=== PATIENT | female | born 1965 | race Caucasian/White ===

== ENCOUNTER → 2017-04-03 | Emergency (ER) | payer MEDICARE ==
[2012-11-26 10:58] VITALS: BMI 20.7
[~2017-04-03] MED LIST: ADDERALL 30 MG30 MG PO; BUDEPRION SR150 MG PO; PROZAC20 MG PO; SYNTHROID100 MCG PO; TOPAMAX100 MG PO; TRAZODONE HCL150 MG PO; VALIUM10 MG PO; VISTARIL50 MG PO
== END ==
LOC: D.ER 05:52
DX: E51.2 Wernicke's encephalopathy (principal)

== ENCOUNTER 2017-04-06 17:59 | Emergency (ER) | payer MEDICARE ==
[2012-11-26 10:58] VITALS: BMI 20.7
[2017-04-08 14:24] LABS: HEPATITIS C ANTIBODY 0.2 (0.0-0.9)
== END 2017-04-06 18:20 | disposition left against medical advice (07) ==
LOC: D.ER 17:59
PROVIDERS: Family Medicine
DX: S01.01XA Laceration without foreign body of scalp, initial encounter (principal); W01.0XXA Fall on same level from slipping, tripping and stumbling without subsequent striking against object, initial encounter; Y93.89 Activity, other specified; Y92.149 Unspecified place in prison as the place of occurrence of the external cause; S06.0X0A Concussion without loss of consciousness, initial encounter

== ENCOUNTER 2017-04-07 06:07 | Emergency (ER) | payer MEDICARE ==
[2012-11-26 10:58] VITALS: BMI 20.7
== END 2017-04-07 10:27 | disposition home or self-care (01) ==
LOC: D.ER 06:07
PROVIDERS: Family Medicine
DX: S01.01XA Laceration without foreign body of scalp, initial encounter (principal); W19.XXXA Unspecified fall, initial encounter; Y93.89 Activity, other specified; Y92.149 Unspecified place in prison as the place of occurrence of the external cause; S06.0X0A Concussion without loss of consciousness, initial encounter

== ENCOUNTER 2017-04-08 05:40 | Emergency (ER) | payer MEDICARE ==
[2017-04-08 06:37] LABS: UDS - AMPHET NEGATIVE QUAL (NEGATIVE); UDS - BARB NEGATIVE QUAL (NEGATIVE); UDS - BENZO NEGATIVE QUAL (NEGATIVE); UDS - COCAINE NEGATIVE QUAL (NEGATIVE); UDS - OPIATE POSITIVE QUAL (NEGATIVE); UDS - PCP NEGATIVE QUAL (NEGATIVE); UDS - THC NEGATIVE QUAL (NEGATIVE)
[2017-04-08 06:39] LABS: BASOPHILS 0.6 % (0-2); HEMOGLOBIN 11.5 g/dL (12-16); IMMATURE GRANULOCYTES 0.1 % (0-5); LYMPHOCYTES 26.6 % (15-50); MCH 29.2 pg (26.0-34.0); MCHC 31.9 g/dL (31.0-37.0); MCV 91.4 fL (80.0-100.0); MEAN PLATELET VOLUME 9.9 fL (7.4-10.4); MONOCYTES 11.8 % (2-11); NEUTROPHILS 59.9 % (40-80); PLATELET COUNT 304 10x3/uL (130-400); RBC 3.94 10x6/uL (4.00-5.40); RDW 15.5 % (11.5-14.5); WBC 8.1 10x3/uL (4.8-10.8)
[2017-04-08 06:59] LABS: ALBUMIN 3.4 g/dL (3.4-5.0); ALKALINE PHOSPHATASE 94 U/L (46-116); ALT (SGPT) 30 U/L (10-68); CALC OSMOLALITY 280 mosm/kg (275-300); CALCIUM 8.5 mg/dL (8.5-10.1); CARBON DIOXIDE 32.6 mmol/L (21.0-32.0); CHLORIDE - SERUM 98 mmol/L (98-107); CREATININE - SERUM 0.7 mg/dL (0.6-1.3); GLUCOSE 108 mg/dL (74-106); POTASSIUM - SERUM 3.1 mmol/L (3.5-5.1); PROTEIN - SERUM 7.4 g/dL (6.4-8.2); SODIUM 139 mmol/L (136-145); UREA NITROGEN 19 mg/dL (7-18); eGFR NON AFRICAN AMERICAN > 90 mL/min (90-120)
[2017-04-08 07:23] LABS: APPEARANCE SLT CLOUDY (CLEAR); BILIRUBIN NEGATIVE (NEGATIVE); COLOR YELLOW (YELLOW); GLUCOSE NEGATIVE (NEGATIVE); KETONE NEGATIVE (NEGATIVE); NITRITE POSITIVE (NEGATIVE); PROTEIN TRACE mg/dL (NEGATIVE)
[2017-04-08 07:24] LABS: BACTERIA MANY /hpf (NONE SEEN); MUCUS <1+ /lpf (NONE SEEN); RED CELLS - URINE OCC /hpf (0-5)
== END 2017-04-09 06:05 | disposition short-term general hospital (02) ==
LOC: D.ER 05:40
PROVIDERS: Family Medicine
DX: R45.851 Suicidal ideations (principal); F33.9 Major depressive disorder, recurrent, unspecified; N39.0 Urinary tract infection, site not specified; E87.6 Hypokalemia

== ENCOUNTER 2017-04-23 20:04 | Emergency (ER) | payer MEDICARE ==
[2012-11-26 10:58] VITALS: BMI 20.7
== END 2017-04-23 23:09 | disposition home or self-care (01) ==
LOC: D.ER 20:04
DX: S00.01XA Abrasion of scalp, initial encounter (principal); Y04.2XXA Assault by strike against or bumped into by another person, initial encounter; Y93.89 Activity, other specified; Y92.89 Other specified places as the place of occurrence of the external cause; S00.03XA Contusion of scalp, initial encounter; F17.200 Nicotine dependence, unspecified, uncomplicated

== ENCOUNTER 2017-04-24 08:10 | Emergency (ER) | payer MEDICARE ==
[2012-11-26 10:58] VITALS: BMI 20.7
== END 2017-04-24 09:55 | disposition home or self-care (01) ==
LOC: D.ER 08:10
DX: Z59.0 Homelessness (principal)

== ENCOUNTER 2018-09-17 23:12 | Inpatient (IN) | payer OTHER, MEDICAID ==
[~2018-09-17] VITALS: Ht 160 cm; Wt 82.6 kg
--- NOTE | 2018-09-17 23:18 | NUR ---
POISON CONTROL CALLED AT, WILL MONITOR SYMPTOMS AND LAB WORK PER THEIR ADVICE.
[2018-09-17 23:37] LABS: BASOPHILS 0.6 % (0-2); EOSINOPHILS 3.8 % (0-7); HEMATOCRIT 32.7 % (36.0-48.0); HEMOGLOBIN 10.3 g/dL (12-16); IMMATURE GRANULOCYTES 0.2 % (0-5); LYMPHOCYTES 32.1 % (15-50); MCH 25.1 pg (26.0-34.0); MCHC 31.5 g/dL (31.0-37.0); MCV 79.6 fL (80.0-100.0); MEAN PLATELET VOLUME 9.1 fL (7.4-10.4); MONOCYTES 8.4 % (2-11); NEUTROPHILS 54.9 % (40-80); PLATELET COUNT 283 10x3/uL (130-400); RBC 4.11 10x6/uL (4.00-5.40); RDW 18.9 % (11.5-14.5); WBC 6.5 10x3/uL (4.8-10.8)
[2018-09-17 23:55] LABS: ACETAMINOPHEN 9.4 ug/mL (10.0-30.0); ALBUMIN 2.9 g/dL (3.4-5.0); ALKALINE PHOSPHATASE 68 U/L (46-116); ALT (SGPT) 12 U/L (10-68); BILIRUBIN - TOTAL 0.17 mg/dL (0.2-1.3); CALC OSMOLALITY 266 mosm/kg (275-300); CALCIUM 8.1 mg/dL (8.5-10.1); CARBON DIOXIDE 27.8 mmol/L (21.0-32.0); CHLORIDE - SERUM 99 mmol/L (98-107); CREATININE - SERUM 0.7 mg/dL (0.6-1.3); GLUCOSE 97 mg/dL (74-106); POTASSIUM - SERUM 3.2 mmol/L (3.5-5.1); PROTEIN - SERUM 6.8 g/dL (6.4-8.2); SODIUM 135 mmol/L (136-145); UREA NITROGEN 5 mg/dL (7-18); eGFR NON AFRICAN AMERICAN > 90 mL/min (90-120)
[2018-09-18] VITALS (25 sets, daily range): BP systolic 93–148; BP diastolic 42–94; Ht 160 cm; Wt 82.6 kg
[2018-09-18 00:14] LABS: APPEARANCE CLEAR (CLEAR); BILIRUBIN NEGATIVE (NEGATIVE); COLOR YELLOW (YELLOW); GLUCOSE NEGATIVE (NEGATIVE); KETONE NEGATIVE (NEGATIVE); NITRITE NEGATIVE (NEGATIVE); PROTEIN NEGATIVE (NEGATIVE); SPECIFIC GRAVITY 1.015 (1.005-1.020); UROBILINOGEN NORMAL (NORMAL)
[2018-09-18 00:15] LABS: HCG URINE NEGATIVE (NEGATIVE)
[2018-09-18 00:24] LABS: UDS - AMPHET NEGATIVE QUAL (NEGATIVE); UDS - BARB NEGATIVE QUAL (NEGATIVE); UDS - BENZO NEGATIVE QUAL (NEGATIVE); UDS - COCAINE NEGATIVE QUAL (NEGATIVE); UDS - OPIATE NEGATIVE QUAL (NEGATIVE); UDS - PCP NEGATIVE QUAL (NEGATIVE); UDS - THC NEGATIVE QUAL (NEGATIVE)
--- NOTE | 2018-09-18 02:44 | NUR ---
REPORT GIVEN TO VALENCIA HERNÁNDEZ IN ICU. PT TRANSFERRED AND BELONGINGS GIVEN TO Arizona Kitchens.
--- NOTE | 2018-09-18 02:47 | NUR ---
PT BROUGHT ROOM 2311 BY WHEELCHAIR ACCOMPANIED BY ER NURSE, PT ASSISTED OVER TO BED, PAPER SCRUBS ON, SITTER AT DOORWAY, 2 BAGS OF CLOTHING REMOVED FROM ROOM, PT AWAKE, ALERT, AND ORIENTED X 4, PT ADMITS "JUST BEING DONE", STATES " WHEN I WAKE UP AND SEE THE SUNSHINE IN THE MORNINGS I JUST CRY", STATES " I HAVE BEEN OUT OF MY MEDICATION FOR WEEKS AND I AM HOMELESS", LEFT HAND PIV WITH NS @ 125CCHR, CM-SR @ 74, BP STABLE, HISTORY OBTAINED, PT REQUESTING SLEEPING PILL AND SOMETHING FOR ANXIETY", EXPLAINED TO PATIENT THAT DUE TO THE REASON FOR BEING HERE NO SLEEPING PILL OR ANXIETY PILL AT THIS TIME", PT VERBALIZES UNDERSTANDING, SR UP X 2, CALL LIGHT IN REACH, CURTAIN OPEN, ALL EXTRA EQUIPMENT REMOVED FROM ROOM, SITTER IN DOORWAY.
[2018-09-18] MEDS ORDERED: PROZAC40 MG PO (02:52)
[2018-09-18] MEDS ORDERED: XANAX0.25 MG (03:00)
--- NOTE | 2018-09-18 03:15 | NUR ---
SALTINE CRACKERS AND LEMON [place] SODA PROVIDED.
--- NOTE | 2018-09-18 03:30 | NUR ---
PT ASSISTED UP TO BSC TO VOID, VOIDED 400CC CLEAR YELLOW URINE, BACK TO BED WITHOUT DIFFICULTY, WARM BLANKET PROVIDED.
--- NOTE | 2018-09-18 04:00 | NUR ---
PT RESTIING QUIETLY IN BED WATCHING TV, VENESSA, ROSEANNA FROM POISON CONTROL CALLED AND UPDATE PROVIDED.
--- NOTE | 2018-09-18 05:36 | NUR ---
PT ASSISTED UP TO BSC TO VOID, VOIDED 500CC, BACK TO BED WITHOUT DIFFICULTY, LEMON [place] SODA PROVIDED, PT DENIES FURTHER NEEDS.
--- NOTE | 2018-09-18 07:55 | NUR ---
M1 ARMOR CREWMAN PRESENT FOR ABD CT. SITTER ESCORTED PATIENT WITH TECH VIA W/C.
--- NOTE | 2018-09-18 08:04 | NUR ---
FAXED AND NOTIFIED BETTY SANTANA, PHSYCH, OF CONSULT FOR MAGDALENO.
--- NOTE | 2018-09-18 10:33 | NUR ---
PT ASSISTED TO BSC - URINATED - CHANGED BED LINENS - ASSISTED PT BACK TO BED - PT C/O HEADACHE PT AGREED TO TYENOL PRN. CPOC
[2018-09-18 10:53] LABS: MAGNESIUM - SERUM 1.8 mg/dL (1.8-2.4)
[2018-09-18 10:58] LABS: % SATURATION 4 % (15-55); IRON 13 ug/dl (35-150); TOTAL IRON BIND CAPACITY 324 ug/dl (260-445); UNSAT IRON BIND CAPACITY 311 ug/dl (150-375)
[2018-09-18 12:50] LABS: HEMATOCRIT 30.8 % (36.0-48.0); HEMOGLOBIN 9.3 g/dL (12-16)
--- NOTE | 2018-09-18 16:00 | NUR ---
PATIETN DESATED DOWN TO 84% ON RA - PATIENT RESTING WITH EYES CLOSED - AWAKEN PATIENT - POX UP TO 94% - PLACED PATIENT ON 2 L/NC FOR SLEEPING - CPOC
--- NOTE | 2018-09-18 16:30 | NUR ---
MEDICATIONS GIVEN - PATIENT ASKED FOR NAUSEA MEDICATION - OFFERED IV ZOFRAM - PATIENT AGREED - CPOC
--- NOTE | 2018-09-18 16:31 | NUR ---
PATIENT ASKED FOR MEDICATION TO TREAT FEELING LIKE SHE HAS TO GO TO URINATE "ALL THE TIME" - INFORMED PT THIS RN WOULD LET KNOW - CPOC
--- NOTE | 2018-09-18 17:53 | NUR ---
MEDICATIONS GIVEN - PT C/O AIR CONDITINOING NOT WORKING WELL. NOTIFIED LINER REROLL TENDER
--- NOTE | 2018-09-18 19:25 | NUR ---
REPORT REC'D AND CARE ASSUMED, REC'D PT RESTING IN BED ON O2 @ 2LITERS VIA NC, SITTER AT BS, PT AWAKE, ALERT, AND ORIENTED X 4, RIGHT FOREARM PIV WITH NS @ 125CC/HR AND PROTONIX @ 10CC/HR, PT COMPLAINS OF NOT FEELING WELL, STATES " MY STOMACH HURTS AND IS CRAMPING", BSC EMPTIED OF 400 STOOL/URINE, PPP, SOCKS TO BILAT FEET, PT REQUESTING LOTION AND SOMETHING TO DRINK BOTH PROVIDED AT THIS TIME, PT DENIES FURTHER NEEDS, SR UP X 2, CALL LIGHT IN REACH.
[2018-09-18 20:43] LABS: HEMATOCRIT 29.8 % (36.0-48.0)
--- NOTE | 2018-09-18 20:45 | NUR ---
PT ASSISTED UP TO BSC REMAINED IN ROOM WITH PATIENT, PT VOIDED CLEAR YELLOW URINE WITH SMALL AMOUNT LOOSE BROWN STOOL NOTED, PT ASSISTED BACK TO BED, PT COMPLAINS OF STOMACH CRAMPING, OFFERED PT SOME HEAT TO APPLY TO ABDOMEN, STATES " IF I GET WARM I WILL VOMIT", BP STABLE, FREQUENCY OF BP CUFF ADJUSTED FOR COMFORT, DENIES FURTHER NEEDS, SR UP X 2, BED IN LOW POSITION, CALL LIGHT IN REACH.
--- NOTE | 2018-09-18 21:02 | NUR ---
PT CONT WITH 1:[address] DOLAN AWARE OF SITUATION. PT RESTING QUIETLY IN BED WATCHING TV. ADMITS TO CURRENTLY HAVING SUICIDAL THOUGHTS WITH INTENT ON ACTING ON THEM.
--- NOTE | 2018-09-18 22:30 | NUR ---
NEW BAG OF PROTONIX AND NS HUNG AT THIS TIME, PT RESTING QUIETLY WATCHING TV, SITTER AT BS, WILL CONT TO MONITOR FOR CHANGES.
[2018-09-19] VITALS (24 sets, daily range): BP systolic 121–166; BP diastolic 52–103
--- NOTE | 2018-09-19 00:30 | NUR ---
PT AWAKE REQUESTING NAUSEA MEDICATION AND SOMETHING FOR A HEADACHE, RATING HEADACHE PAIN "7" ON 0-10 PAIN SCALE, TYLENOL 650MG PO AND ZOFRAN 4MG GIVEN IV PUSH, SITTER REMAINS AT BS.
--- NOTE | 2018-09-19 03:05 | NUR ---
REASSESSMENT COMPLETED, PT TEARFUL, STATES SHE IS ANXIOUS AND WANTS HER ANXIETY MEDICATION, EXPLAINED TO PATIENT ANXIETY MEDICATION ORDERED 3 TIMES PER DAY AND WOULD NOT BE DUE UNTIL 0900, IBETH PROVIDED FOR SNACK ON REQUEST PT DENIES FURTHER NEEDS.
[2018-09-19 04:27] LABS: BASOPHILS 0.6 % (0-2); EOSINOPHILS 2.7 % (0-7); HEMATOCRIT 32.5 % (36.0-48.0); HEMOGLOBIN 9.7 g/dL (12-16); IMMATURE GRANULOCYTES 0.2 % (0-5); LYMPHOCYTES 24.2 % (15-50); MCH 24.5 pg (26.0-34.0); MCHC 29.8 g/dL (31.0-37.0); MEAN PLATELET VOLUME 9.3 fL (7.4-10.4); MONOCYTES 8.9 % (2-11); NEUTROPHILS 63.4 % (40-80); RBC 3.96 10x6/uL (4.00-5.40); RDW 18.7 % (11.5-14.5); WBC 6.4 10x3/uL (4.8-10.8)
[2018-09-19 04:31] LABS: MCV 82.1 fL (80.0-100.0); PLATELET COUNT 201 10x3/uL (130-400)
[2018-09-19 04:47] LABS: ALBUMIN 2.6 g/dL (3.4-5.0); ALKALINE PHOSPHATASE 63 U/L (46-116); ALT (SGPT) 11 U/L (10-68); BILIRUBIN - TOTAL 0.15 mg/dL (0.2-1.3); CALC OSMOLALITY 277 mosm/kg (275-300); CALCIUM 7.7 mg/dL (8.5-10.1); CARBON DIOXIDE 28.8 mmol/L (21.0-32.0); CHLORIDE - SERUM 106 mmol/L (98-107); CREATININE - SERUM 0.6 mg/dL (0.6-1.3); GLUCOSE 114 mg/dL (74-106); POTASSIUM - SERUM 3.5 mmol/L (3.5-5.1); PROTEIN - SERUM 6.2 g/dL (6.4-8.2); SODIUM 139 mmol/L (136-145); eGFR NON AFRICAN AMERICAN > 90 mL/min (90-120)
[2018-09-19 04:48] LABS: UREA NITROGEN 11 mg/dL (7-18)
--- NOTE | 2018-09-19 04:55 | NUR ---
PT COMPLAINS OF SEVERE HEADACHE AND EXTREME NAUSEA, 4MG ZOFRAN GIVEN SLOW IVP, AND TYLENOL 650MG PO GIVEN FOR HEADACHE, PT DENIES FURTHER NEEDS.
--- NOTE | 2018-09-19 06:00 | NUR ---
PT RESTING IN BED EYES CLOSED, RESP EVEN AND UNLABORED, BP STABLE, WILL REPORT TO ONCOMING SHIFT
--- NOTE | 2018-09-19 07:15 | NUR ---
REPORT RECEIVED. PT ON SUICIDE PRECAUTIONS. SITTER AT BEDSIDE. IV IN RIGHT FOREARM WITH NS @ 125ML/HR AND A PROTONIX DRIP INFUSING. PT ASSISTED TO BSC. WILL ATTEMPT TO GET A STOOL SAMPLE FOR LAB. PT IS ALERT WITH A FLAT AFFECT. PT IN PAPER SCRUBS. VSS. NO OTHER NEEDS AT THIS TIME.
--- NOTE | 2018-09-19 09:15 | NUR ---
IV OUT OF RIGHT FOREARM. ATTEMPTED TO STICK PT TWICE. BLEW VEIN IN LEFT ARM. ASKED ANOTHER NURSE TO TRY.
--- NOTE | 2018-09-19 10:00 | NUR ---
NEW 20 GAUGE IV TO LEFT UPPER ARM. NS AND PROTONIX INFUSING. SITTER AT BEDSIDE.
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
--- NOTE | 2018-09-19 12:37 | NUR ---
PT COMPLAINED OF HEADACHE AND SOMME NAUSEA. STATED THAT THE PROTONIX DRIP HAS HELPED SOME. GAVE TYLENOL FOR HEADACHE AND ZOFRAN FOR NAUSEA. WILL MONITOR.
--- NOTE | 2018-09-19 13:00 | NUR ---
PT STATES "THAT SHE NO LONGER WANTS TO HURT HERSELF, THAT SHE WANTS TO LIVE." SHE IS WORRIED ABOUT HAVING A PLACE TO LIVE AFTER SHE DOES INPATIENT PSYCH. SPOKE WITH DR MONREAL. CONSULT FOR CASE MANAGEMENT PLACED.
[2018-09-19 13:02] LABS: HEMATOCRIT 30.8 % (36.0-48.0); HEMOGLOBIN 9.1 g/dL (12-16)
--- NOTE | 2018-09-19 13:52 | NUR ---
AFTER POTASSIUM REPLACEMENT AND LAB DRAW, POTASSIUM IS NOW 3.7. WILL CHECK AGAIN WITH [facility] TOMORROW 09/20/18.
--- NOTE | 2018-09-19 14:21 | MORECARE ---
CASE MANAGEMENT DISCHARGE SUMMARY PATIENT: CLIFFORD VIRK UNIT: [id number] ADM DATE: 09/18/18 AGE: 53 : 63 SEX: F ROOM/BED: D.2311 AUTHOR: ODALYS GO PHYSICIAN: REFERRING PHYSICIAN: JAGUAR MONREAL MD DATE OF SERVICE: 09/19/18 Discharge Plan Patient Name: CLIFFORD VIRK Facility: [facility]:[place] : 1965 Planned Disposition: Anticipated Discharge Date: Discharge Date: Expected LOS: Initial Reviewer: [email or web address] Initial Review Date: 09/19/2018 Generated: 09/19/18 3:21 pm Comments DCP- Discharge Planning Updated by GIANNA: Melonie Munguia on 09/19/18 1:[address] Patient Name: CLIFFORD VIRK Admission Status: ER Accout number: [id number] Admission Date: 09-18-2018 : 1965 Admission Diagnosis: Attending: JAGUAR MONREAL Current LOS: 1 Anticipated DC Date: Planned Disposition: Primary Insurance: [email or web address] Discharge Planning Comments: SPOKE TO PT ABOUT GOING TO AN INPATIENT PSYCH FACILTY VS OUTPATIENT. SHE STATED SHE REALLY DOES NOT WANT TO GO TO INPATIENT BUT WILL THINK ABOUT IT. HER BIGGEST WORRY IS AFTER TREATMENT OR AT DC IS WHERE SHE WILL GO. SHE STATES SHE IS HOMELESS. STATES SHE GETS DISABILITY AND I EXPLAINED TO HER THAT THERE ARE LOW INCOME HOUSING THAT SHE COULD CHECK INTO . SHE ALSO HAS A DRINKING PROBLEM AND NEEDS A FACILTY THAT HELPS WITH BOTH ISSUES. STATED SHE IS NOT THINKING ABOUT HARMING HERSELF AT THIS TIME BUT SHE IS DEPRESSED. CM WILL CONTINUE TO FOLLOW Computer Engineering Technician: Melonie Munguia Patient Name: CLIFFORD VIRK Page [id number] at 1421 All edits/amendments must be made on the electronic document DICTATION DATE: 09/19/181419 MANNEQUIN SANDER AND FINISHER: HARI 09/19/181419 RPT#: [id number] DC DATE: STATUS: ADM IN [facility] [address] [place] [address] END OF REPORT
--- NOTE | 2018-09-19 15:30 | NUR ---
PT RESTING QUIETLY. VSS. SITTER AT BEDSIDE. WILL CONTINUE TO MONITOR.
--- NOTE | 2018-09-19 17:15 | NUR ---
IV IN LEFT UPPER ARM INFILTRATED. STOPPED. REMOVED. CATHETER TIP INTACT.
--- NOTE | 2018-09-19 19:41 | NUR ---
REPORT RECEIVED, SHIFT ASSESSMENT COMPLETED PER FLOW SHEET. AAOX4. PPP. RT FOREARM PIV PATENT, NO SIGNS OF INFECTION OR INFILTRATION. DENIES SUCIDAL THOUGHTS/THOUGHTS OF HURTING HERSELF AT THIS TIME. SITTER AT BEDSIDE. SEE FLOW SHEET FOR COMPLETE ASSESSMENT. WILL CONTINUE TO MONITOR.
[2018-09-19 20:10] LABS: HEMATOCRIT 29.9 % (36.0-48.0)
--- NOTE | 2018-09-19 20:34 | NUR ---
SCHEDULED MEDS GIVEN, WATER PROVIDED. TOLERATED WELL, NO DIFFICULTY SWALLOWING. DENIES NEEDS. WILL CONTINUE TO MONITOR.
--- NOTE | 2018-09-19 22:00 | NUR ---
NO ACUTE DISTRESS NOTED, SITTER AT BEDSIDE. WILL CONTINUE TO MONITOR.
--- NOTE | 2018-09-19 23:17 | NUR ---
REASSESSMENT COMPLETED PER FLOW SHEET, SEE FOR DETAILS. NO ACUTE CHANGES NOTED. UP TO BEDSIDE COMMODE, VOID X1. SITTER AT BEDSIDE. DENIES NEEDS. CALL LIGHT WITHIN REACH. WILL CONTINUE TO MONITOR.
[2018-09-20] VITALS (24 sets, daily range): BP systolic 97–134; BP diastolic 52–88
--- NOTE | 2018-09-20 01:07 | NUR ---
CALL LIGHT ANSWERED, VANILLA PUDDING PROVIDED TO PATIENT PER HER REQUEST. DENIES OTHER NEEDS. SITTER AT BEDSIDE. WILL CONTINUE TO MONITOR.
--- NOTE | 2018-09-20 03:01 | NUR ---
REASSESSMENT COMPLETED PER FLOW SHEET, SEE FOR DETAILS. NO ACUTE DISTRESS NOTED. WELL CONTINUE TO MONITOR.
--- NOTE | 2018-09-20 05:00 | NUR ---
RESTING, NO ACUTE DISTRESS NOTED. WILL CONTINUE TO MONITOR.
--- NOTE | 2018-09-20 06:40 | NUR ---
AND SON AT BEDSIDE. CHARGE NURSE PIERRE ROBLES AND THIS NURSE DISCUSSED DRN STATUS. DNR STATUS UPDATED. PER 'S AND SON'S REQUEST, NO EMERGENCY DRUGS.
--- NOTE | 2018-09-20 07:08 | NUR ---
REPORT RECEIVED. SITTER AT BEDSIDE. PT RESTING QUIETLY WITH NO DISTRESS NOTED. VSS. HEAD TO TOE ASSESSMENT PERFORMED. NS AND PROTONIX INFUSING INTO PERIPHERAL IV. ON SUICIDE PRECAUTIONS. NO NEEDS AT THIS TIME. WILL CONTINUE TO MONITOR.
--- NOTE | 2018-09-20 09:30 | NUR ---
PT'S HAIR WASHED. CHG BATH GIVEN WITH ASSISTANCE. LINENS CHANGED. PT TOLERATED WELL. STATED SHE FELT BETTER AFTER GETTING CLEAN. VSS. WILL CONTINUE TO MONITOR. SITTER BACK AT BEDSIDE.
--- NOTE | 2018-09-20 10:24 | NUR ---
PATIENT CONTINUES TO HAVE 1:1 SITTER IN ICU. WATCHING TV QUIETLY AT THIS TIME. DR. DOLAN AWARE OF SITUATION. PATIENT ADMITS TO THOUGHTS OF SUICIDE BUT WITH NO INTENT TO ACT.
--- NOTE | 2018-09-20 11:00 | NUR ---
DR MOSLEY ROUNDED ON PT. NEW ORDER OF LEVSIN FOR PT'S ABDOMINAL CRAMPS.
--- NOTE | 2018-09-20 12:00 | NUR ---
TRIED TO PULL LEVSIN FOR PT. NOT IN PYXIS. CALLED PHARMACY. STATED THEY WOULD TRY TO GET IT UP HERE TO US. WILL GIVE WHEN RECEIVE FROM PHARMACY.
--- NOTE | 2018-09-20 13:06 | MORECARE ---
CASE MANAGEMENT DISCHARGE SUMMARY PATIENT: CLIFFORD VIRK UNIT: [id number] ADM DATE: 09/19/18 AGE: 53 : 63 SEX: F ROOM/BED: D.2311 AUTHOR: ODALYS GO PHYSICIAN: REFERRING PHYSICIAN: JAGUAR MNOREAL MD DATE OF SERVICE: 09/20/18 Discharge Plan Patient Name: CLIFFORD VIRK Facility: [facility]:[place] : 1965 Planned Disposition: Anticipated Discharge Date: Discharge Date: Expected LOS: Initial Reviewer: GIANNA Initial Review Date: 09/19/2018 Generated: 09/20/18 2:06 pm Comments DCP- Discharge Planning Updated by GIANNA: Melonie Munguia on 09/19/18 1:[address] Patient Name: CLIFFORD VIRK Admission Status: ER Accout number: [id number] Admission Date: 09-18-2018 : 1965 Admission Diagnosis: Attending: JAGUAR MONREAL Current LOS: 1 Anticipated DC Date: Planned Disposition: Primary Insurance: [employer] Discharge Planning Comments: SPOKE TO PT ABOUT GOING TO AN INPATIENT PSYCH FACILTY VS OUTPATIENT. SHE STATED SHE REALLY DOES NOT WANT TO GO TO INPATIENT BUT WILL THINK ABOUT IT. HER BIGGEST WORRY IS AFTER TREATMENT OR AT DC IS WHERE SHE WILL GO. SHE STATES SHE IS HOMELESS. STATES SHE GETS DISABILITY AND I EXPLAINED TO HER THAT THERE ARE LOW INCOME HOUSING THAT SHE COULD CHECK INTO . SHE ALSO HAS A DRINKING PROBLEM AND NEEDS A FACILTY THAT HELPS WITH BOTH ISSUES. STATED SHE IS NOT THINKING ABOUT HARMING HERSELF AT THIS TIME BUT SHE IS DEPRESSED. CM WILL CONTINUE TO FOLLOW Vineyardist: Melonie Munguia External Providers External Provider: [facility] Next Contact Date: Service Request Date: Service Type: Resolution: Reviewer: Comments: Last DP export: 09/19/18 1:21 p Patient Name: CLIFFORD VIRK Page [id number] at 1306 All edits/amendments must be made on the electronic document DICTATION DATE: 09/20/18 1306 ACADEMIC AFFAIRS VICE PRESIDENT: HARI 09/20/18 1306 RPT#: [id number] DC DATE: STATUS: ADM IN [facility] [address] [place] [address] END OF REPORT
--- NOTE | 2018-09-20 15:00 | NUR ---
REASSESSMENT DONE. VSS. PT RESTING QUIETLY.
--- NOTE | 2018-09-20 16:30 | NUR ---
PT DENIES ANY STOMACH CRAMPS AT THIS TIME. STATES MEDICATION HAS GIVEN HER SOME RELIEF. WILL CONTINUE TO MONITOR.
--- NOTE | 2018-09-20 18:25 | NUR ---
PT ON RA. O2 SAT AT 96%. WILL MONITOR AND SEE HOW PT DOES. NO NEEDS AT THIS TIME.
--- NOTE | 2018-09-20 18:38 | MORECARE ---
CASE MANAGEMENT DISCHARGE SUMMARY PATIENT: CLIFFORD VIRK UNIT: [id number] ADM DATE: 09/19/18 AGE: 53 : 63 SEX: F ROOM/BED: D.2311 AUTHOR: ODALYS GO PHYSICIAN: REFERRING PHYSICIAN: JAGUAR MONREAL MD DATE OF SERVICE: 09/20/18 Discharge Plan Patient Name: CLIFFORD VIRK Facility: [facility]:[place] : 1965 Planned Disposition: Anticipated Discharge Date: Discharge Date: Expected LOS: Initial Reviewer: [email or web address] Initial Review Date: 09/19/2018 Generated: 09/20/18 7:37 pm Comments DCP- Discharge Planning Updated by [email or web address]: Katia Mejia on 09/20/18 5:[address] CM received notice that patient is stable for inpatient psych placement. CM contacted transfer center and faxed records. CM awaiting placement for inpatient psych. CM will continue to follow and assist as needed with discharge planning / needs. DCP- Discharge Planning Updated by [id number]: Melonie Munguia on 09/19/18 1:[address] Patient Name: CLIFFORD VIRK Admission Status: ER Accout number: [id number] Admission Date: 09-18-2018 : 1965 Admission Diagnosis: Attending: JAGUAR MONREAL Current LOS: 1 Anticipated DC Date: Planned Disposition: [facility] Discharge Planning Comments: SPOKE TO PT ABOUT GOING TO AN INPATIENT PSYCH FACILTY VS OUTPATIENT. SHE STATED SHE REALLY DOES NOT WANT TO GO TO INPATIENT BUT WILL THINK ABOUT IT. HER BIGGEST WORRY IS AFTER TREATMENT OR AT DC IS WHERE SHE WILL GO. SHE STATES SHE IS HOMELESS. STATES SHE GETS DISABILITY AND I EXPLAINED TO HER THAT THERE ARE LOW INCOME HOUSING THAT SHE COULD CHECK INTO . SHE ALSO HAS A DRINKING PROBLEM AND NEEDS A FACILTY THAT HELPS WITH BOTH ISSUES. STATED SHE IS NOT THINKING ABOUT HARMING HERSELF AT THIS TIME BUT SHE IS DEPRESSED. CM WILL CONTINUE TO FOLLOW Inside Tester: Melonie Munguia Last DP export: 09/20/18 12:06 p Patient Name: CLIFFORD VIRK Page [phone] at 1838 All edits/amendments must be made on the electronic document DICTATION DATE: 09/20/181836 SOCIAL MEDIA EDITOR: HARI 09/20/181836 RPT#: [id number] DC DATE: STATUS: ADM IN [facility] [address] [place] [address] END OF REPORT
--- NOTE | 2018-09-20 19:10 | NUR ---
REPORT RECEIVED, SHIFT ASSESSMENT COMPLETED PER FLOW SHEET. AAOX4. PPP. RT FOREARM PIV PATENT, NO SIGNS OF INFECTION OR INFILTRATION. DENIES PAIN OR NEEDS. CALL LIGHT WITHIN REACH. SITTER AT BEDSIDE. WILL CONTINUE TO MONITOR.
--- NOTE | 2018-09-20 21:00 | NUR ---
NO ACUTE DISTRESS NOTED. DENIES NEEDS. WILL CONTINUE TO MONITOR.
--- NOTE | 2018-09-20 23:04 | NUR ---
REASSESSMENT COMPLETED PER FLOW SHEET, SEE FOR DETAILS. NO ACUTE CHANGES NOTED. DENIES NEEDS. CALL LIGHT WITHIN REACH. WILL CONTINUE TO MONITOR.
[2018-09-21] VITALS (7 sets, daily range): BP systolic 117–146; BP diastolic 6–94
--- NOTE | 2018-09-21 00:16 | NUR ---
CALL LIGHT ANSWERED, C/O NAUSEA, PRN ZOFRAN GIVEN. DENIES OTHER NEEDS. CALL LIGHT WITHIN REACH. SITTER AT BEDSIDE.
--- NOTE | 2018-09-21 02:00 | NUR ---
RESTING, NO ACUTE DISTRESS NOTED. SITTER AT BEDSIDE. WILL CONTINUE TO MONITOR.
--- NOTE | 2018-09-21 03:11 | NUR ---
REASSESSMENT COMPLETED PER FLOW SHEET, SEE FOR DETAILS. DENIES NEEDS. CALL LIGHT WITHIN REACH. SITTER AT BEDSIDE. WILL CONTINUE TO MONITOR.
[2018-09-21 04:51] LABS: BASOPHILS 0.5 % (0-2); EOSINOPHILS 3.8 % (0-7); HEMATOCRIT 31.4 % (36.0-48.0); HEMOGLOBIN 9.2 g/dL (12-16); IMMATURE GRANULOCYTES 0.2 % (0-5); LYMPHOCYTES 18.3 % (15-50); MCH 24.3 pg (26.0-34.0); MCHC 29.3 g/dL (31.0-37.0); MCV 82.8 fL (80.0-100.0); MEAN PLATELET VOLUME 9.5 fL (7.4-10.4); MONOCYTES 8.3 % (2-11); NEUTROPHILS 68.9 % (40-80); PLATELET COUNT 216 10x3/uL (130-400); RBC 3.79 10x6/uL (4.00-5.40); RDW 19.1 % (11.5-14.5); WBC 6.5 10x3/uL (4.8-10.8)
[2018-09-21 04:57] LABS: CALC OSMOLALITY 277 mosm/kg (275-300); CALCIUM 7.8 mg/dL (8.5-10.1); CARBON DIOXIDE 30.6 mmol/L (21.0-32.0); CHLORIDE - SERUM 106 mmol/L (98-107); CREATININE - SERUM 0.6 mg/dL (0.6-1.3); GLUCOSE 86 mg/dL (74-106); POTASSIUM - SERUM 3.8 mmol/L (3.5-5.1); SODIUM 141 mmol/L (136-145); UREA NITROGEN 6 mg/dL (7-18); eGFR NON AFRICAN AMERICAN > 90 mL/min (90-120)
--- NOTE | 2018-09-21 05:00 | NUR ---
NO ACUTE CHANGES NOTED, DENIES NEEDS. WILL CONTINUE TO MONITOR. SITTER AT BEDSIDE.
--- NOTE | 2018-09-21 07:00 | NUR ---
REPORT RECEIVED. ASSESSMENT COMPLETE PER FLOW SHEET. VSS. PT RESTING COMFORTABLY DENIES NEEDS WILL CONTINUE TO MONITOR
--- NOTE | 2018-09-21 07:49 | NUR ---
CONSTABLE SSRS-FREQUENT SCREENER COMPLETED. PATIENT DENIES SUICIDAL THOUGHTS AT THIS TIME. CONTINUES TO HAVE SITTER 1:1 AT BEDSIDE.
--- NOTE | 2018-09-21 07:49 | NUR ---
PT GIVEN BREAKFAST TRAY ATE 50% DENIES FURTHER NEEDS
--- NOTE | 2018-09-21 09:09 | NUR ---
NUTRITION F/U CHART REVIEWED. PT SLEEPING WITH SITTER IN ROOM. TOLERATING AHA DIET WITH ~ 50% INTAKE BREAKFAST THIS AM. CONTINUES TO BE ASSESSED AT LOW NUTRITIONAL RISK. RD FOLLOWING
--- NOTE | 2018-09-21 09:10 | NUR ---
REPORT CALLED TO OLGA HERNÁNDEZ
--- NOTE | 2018-09-21 09:24 | MORECARE ---
CASE MANAGEMENT DISCHARGE SUMMARY PATIENT: CLIFFORD VIRK UNIT: [id number] ADM DATE: 09/19/18 AGE: 53 : 63 SEX: F ROOM/BED: D.2311 AUTHOR: ODALYS GO PHYSICIAN: REFERRING PHYSICIAN: JAGUAR MONREAL MD DATE OF SERVICE: 09/21/18 Discharge Plan Patient Name: CLIFFORD VIRK Facility: [facility]:[place] : 1965 Planned Disposition: Anticipated Discharge Date: Discharge Date: Expected LOS: Initial Reviewer: [email or web address] Initial Review Date: 09/19/2018 Generated: 09/21/18 10:24 am Comments DCP- Discharge Planning Updated by [email or web address]: Katia Mejia on 09/20/18 5:[address] CM received notice that patient is stable for inpatient psych placement. CM contacted transfer center and faxed records. CM awaiting placement for inpatient psych. CM will continue to follow and assist as needed with discharge planning / needs. DCP- Discharge Planning Updated by [email or web address]: Melonie Munguia on 09/19/18 1:[address] Patient Name: CLIFFORD VIRK Admission Status: ER Accout number: [id number] Admission Date: 09-18-2018 : 1965 Admission Diagnosis: Attending: JAGUAR MONREAL Current LOS: 1 Anticipated DC Date: Planned Disposition: [facility] Discharge Planning Comments: SPOKE TO PT ABOUT GOING TO AN INPATIENT PSYCH FACILTY VS OUTPATIENT. SHE STATED SHE REALLY DOES NOT WANT TO GO TO INPATIENT BUT WILL THINK ABOUT IT. HER BIGGEST WORRY IS AFTER TREATMENT OR AT DC IS WHERE SHE WILL GO. SHE STATES SHE IS HOMELESS. STATES SHE GETS DISABILITY AND I EXPLAINED TO HER THAT THERE ARE LOW INCOME HOUSING THAT SHE COULD CHECK INTO . SHE ALSO HAS A DRINKING PROBLEM AND NEEDS A FACILTY THAT HELPS WITH BOTH ISSUES. STATED SHE IS NOT THINKING ABOUT HARMING HERSELF AT THIS TIME BUT SHE IS DEPRESSED. CM WILL CONTINUE TO FOLLOW Spanish Instructor: Melonie Munguia Last DP export: 09/20/18 5:38 p Patient Name: CLIFFORD VIRK Page [id number] at 0924 All edits/amendments must be made on the electronic document DICTATION DATE: 09/21/18922 INFORMATION SECURITY SYSTEMS INSTRUCTOR: HARI 09/21/18922 RPT#: [id number] DC DATE: STATUS: ADM IN [facility] [address] [place] [address] END OF REPORT
--- NOTE | 2018-09-21 09:45 | NUR ---
EMS AT BEDSIDE GIVEN UDPATE. PT IN TRANSFER AT THIS TIME.
--- NOTE | 2018-09-21 12:07 | MORECARE ---
CASE MANAGEMENT DISCHARGE SUMMARY PATIENT: CLIFOFRD VIRK UNIT: [id number] ADM DATE: 09/19/18 AGE: 53 : 63 SEX: F ROOM/BED: D.2311 AUTHOR: ODALYS GO PHYSICIAN: REFERRING PHYSICIAN: JAGUAR MONREAL MD DATE OF SERVICE: 09/21/18 Discharge Plan Patient Name: CLIFFORD VIRK Facility: [facility]:[place] : 1965 Planned Disposition: Anticipated Discharge Date: Discharge Date: 09/21/2018 Expected LOS: Initial Reviewer: [email or web address] Initial Review Date: 09/19/2018 Generated: 09/21/18 1:07 pm Comments DCP- Discharge Planning Updated by [email or web address]: Katia Mejia on 09/20/18 5:[address] CM received notice that patient is stable for inpatient psych placement. CM contacted transfer center and faxed records. CM awaiting placement for inpatient psych. CM will continue to follow and assist as needed with discharge planning / needs. DCP- Discharge Planning Updated by [email or web address]: Melonie Munguia on 09/19/18 1:[address] Patient Name: CLIFFORD VIRK Admission Status: ER Accout number: [id number] Admission Date: 09-18-2018 : 1965 Admission Diagnosis: Attending: JAGUAR MONREAL Current LOS: 1 Anticipated DC Date: Planned Disposition: Primary Insurance: [facility] Discharge Planning Comments: SPOKE TO PT ABOUT GOING TO AN INPATIENT PSYCH FACILTY VS OUTPATIENT. SHE STATED SHE REALLY DOES NOT WANT TO GO TO INPATIENT BUT WILL THINK ABOUT IT. HER BIGGEST WORRY IS AFTER TREATMENT OR AT DC IS WHERE SHE WILL GO. SHE STATES SHE IS HOMELESS. STATES SHE GETS DISABILITY AND I EXPLAINED TO HER THAT THERE ARE LOW INCOME HOUSING THAT SHE COULD CHECK INTO . SHE ALSO HAS A DRINKING PROBLEM AND NEEDS A FACILTY THAT HELPS WITH BOTH ISSUES. STATED SHE IS NOT THINKING ABOUT HARMING HERSELF AT THIS TIME BUT SHE IS DEPRESSED. CM WILL CONTINUE TO FOLLOW Technical Maintenance Technician: Melonie Munguia Last DP export: 09/21/18 8:24 a Patient Name: CLIFFORD VIRK Page [id number] at 1207 All edits/amendments must be made on the electronic document DICTATION DATE: 09/21/181206 MAIL TRUCK DRIVER: HARI 09/21/187 RPT#: [id number] DC DATE:09/21/18 STATUS: DIS IN [facility] [address] [place] [address] END OF REPORT
== END 2018-09-21 09:45 | DRG 918 ==
LOC: D.ER 23:12 → D.ICU 09-18 00:55 → OBSVTIME 09-18 00:55 → D.ICU 09-18 00:55
PROVIDERS: Emergency Medicine; Family Medicine; ADMIT Internal Medicine Nephrology; ATTEND Internal Medicine Nephrology
DX: T43.222A Poisoning by selective serotonin reuptake inhibitors, intentional self-harm, initial encounter (principal); F33.9 Major depressive disorder, recurrent, unspecified; R45.851 Suicidal ideations; E87.1 Hypo-osmolality and hyponatremia; F17.203 Nicotine dependence unspecified, with withdrawal; T43.212A Poisoning by selective serotonin and norepinephrine reuptake inhibitors, intentional self-harm, initial encounter; T43.592A Poisoning by other antipsychotics and neuroleptics, intentional self-harm, initial encounter; F10.129 Alcohol abuse with intoxication, unspecified; D50.9 Iron deficiency anemia, unspecified; E87.6 Hypokalemia; F41.9 Anxiety disorder, unspecified